=== PATIENT | female | born 1975 | race American Indian/Alaskan Native ===

== ENCOUNTER 2017-02-25 08:59 | Emergency (ER) | payer MEDICAID ==
--- NOTE | 2017-02-25 10:12 | Emergency Department Report ---
Chief Complaint: Back Pain/Injury Stated Complaint: FALL/BODY PAIN Time Seen by Provider: 02/25/17 10:07 - HPI History of Present Illness: PT states she fell down the steps on Saturday. PT states she was at her daughter's house. PT states she slid down on her backside. PT denies loc or incontinence. - ROS Review of Systems: + back pain + irregular cycle - missed cycle in january, passed clots February 09 - unsure if she is - Exam Physical Exam: PT looks well, non toxic steady gait with cane l-spine ttp t spine has paraspinal tenderness MSE screening note: Focused history and physical exam performed. Due to findings the following was ordered: labs, xr ED Disposition for MSE Condition: Stable
--- NOTE | 2017-02-25 10:55 | XRay Report ---
Lumbar spine: Trauma, pain. There is mild anterior compression of T11 with intact bony contours. Minimal retrolisthesis of L1 on L2 is noted. The interspace at L5-S1 is moderately narrowed with anterior and posterior spondylosis. No prior study for comparison. Impressions: L1 retrolisthesis; degenerative bone and disc changes at L5-S1. No fracture and no acute finding suspected.
[2017-02-25] MEDS ORDERED: MOTRIN PO ONE (11:23)
--- NOTE | 2017-02-25 12:37 | Cat Scan Report ---
CT HEAD WITHOUT CONTRAST INDICATION: Headache. Status post fall. COMPARISON: None similar. FINDINGS: Noncontrast head CT demonstrates normal ventricles and sulci without acute or recent infarct, hemorrhage, mass effect or midline shift. No abnormal extra-axial fluid collections. Slight periventricular hypodensities. Posterior fossa structures and basilar cisterns appear within normal limits. Symmetric eye globes. Clear aerated paranasal sinuses and mastoid air cells. Somewhat small frontal sinuses. Slight leftward nasal septal bowing. Atherosclerotic vascular calcifications. Intact calvarium. Normal overlying scalp soft tissues. Few radiopaque dental material incidentally noted. CONCLUSION: No acute intracranial CT abnormality, as described. Thank you for the opportunity to participate in this patient's care.
[2017-02-25 13:00] VITALS: BP 167/89
--- NOTE | 2017-02-25 22:43 | Emergency Department Report ---
Entered by BHARATH LAM, acting as scribe for CARIE MOTA NP. ED Headache HPI - General Chief Complaint: Headache Stated Complaint: FALL/BODY PAIN Time Seen by Provider: 02/25/17 10:07 Source: patient Exam Limitations: no limitations - History of Present Illness Initial Comments: This is a 42 y/o female nontoxic, well nourished in appearance, no acute signs of distress and PMHx of seizures with last episode 5 years ago, and sciatica, presents with back pain and constant, throbbing, 6/10 diffuse TRONCOSO secondary to a fall down stairs that occurred 2 days ago. Patient stated was walking up the stairs when she tripped and fell down 3 flit of stairs backwards. Patient stated she hit her head while falling down the stairs and stated she was not sure if she loss consciousness. Pt denies aggravating or alleviating factors, n /v, fever, chills, SOB, chest pain, visual changes, dizziness, numbness, blurry vision or bladder or bowel stability. Patient states allergies to Zofran. Timing/Duration: constant, other (2 days ago) Quality: moderate (6/10) Head Injury Location: other (diffuse) Recent Head Trauma: other (unknown) Associated Symptoms: denies symptoms. denies: confusion, fatigue, facial pain, fever/chills, flushing, loss of consciousness, nausea/vomiting, nasal congestion , nasal drainage, numbness in legs/feet, rash, seizures, sinus infection, stiff neck, vision changes, weakness Allergies/Adverse Reactions: Allergies Sulfa (Sulfonamide Antibiotics) Adverse Reaction (Verified 02/25/17 10:13) Hives Home Medications: Ambulatory Orders Cyclobenzaprine [Flexeril] 10 mg PO TID PRN #15 tablet 02/25/17 Ibuprofen [Motrin 600 MG tab] 600 mg PO Q8H PRN #15 tablet 02/25/17 ED Review of Systems Comment: All other systems reviewed and negative Constitutional: denies: chills, fever Eyes: denies: vision change ENT: denies: ear pain, throat pain Respiratory: denies: cough, shortness of breath Cardiovascular: denies: chest pain Endocrine: no symptoms reported Gastrointestinal: denies: abdominal pain, nausea, vomiting Genitourinary: denies: urgency, dysuria, discharge Musculoskeletal: denies: back pain, joint swelling, arthralgia Skin: denies: rash, lesions Neurological: headache. denies: numbness, other (tingling) Psychiatric: denies: anxiety, depression Hematological/Lymphatic: denies: easy bleeding, easy bruising Other: no bladder or bowel stability ED Past Medical Hx - Past Medical History Additional medical history: sciatica - Surgical History Past Surgical History?: Yes Additional Surgical History: tubal - Social History Smoking Status: Never Smoker Substance Use Type: Marijuana - Medications Home Medications: Home Medications Medication Instructions Recorded Confirmed Last Taken Type Cyclobenzaprine [Flexeril] 10 mg PO TID PRN #15 tablet 02/25/17 Unknown Rx Ibuprofen [Motrin 600 MG tab] 600 mg PO Q8H PRN #15 tablet 02/25/17 Unknown Rx ED Physical Exam - General Limitations: No Limitations General appearance: alert, in no apparent distress - Head Head exam: Present: atraumatic, normocephalic - Eye Eye exam: Present: normal appearance, PERRL, EOMI Pupils: Present: normal accommodation - ENT ENT exam: Present: normal exam, normal orophraynx, mucous membranes moist, TM's normal bilaterally, normal external ear exam - Neck Neck exam: Present: normal inspection, full ROM. Absent: tenderness, meningismus, lymphadenopathy, thyromegaly - Respiratory Respiratory exam: Present: normal lung sounds bilaterally. Absent: respiratory distress, wheezes, rales, rhonchi, stridor, chest wall tenderness, accessory muscle use, decreased breath sounds, prolonged expiratory - Cardiovascular Cardiovascular Exam: Present: regular rate, normal rhythm, normal heart sounds. Absent: bradycardia, tachycardia, irregular rhythm, systolic murmur, diastolic murmur, rubs, gallop - GI/Abdominal GI/Abdominal exam: Present: soft, distended, normal bowel sounds. Absent: tenderness, guarding, rebound, rigid, mass, bruit - Extremities Exam Extremities exam: Present: normal inspection, full ROM, normal capillary refill. Absent: tenderness, pedal edema, joint swelling, calf tenderness - Back Exam Back exam: Present: normal inspection, full ROM, tenderness, paraspinal tenderness (thoracic region but denies thoracic spinal tenderness), vertebral tenderness (lumbar spinal tenderness). Absent: CVA tenderness (R), CVA tenderness (L), muscle spasm, rash noted - Expanded Back Exam Expanded Back exam: Absent: saddle anesthesia Back exam: Negative Straight Leg Raising: Left, Right - Neurological Exam Neurological exam: Present: alert, oriented X3, CN II-XII intact, normal gait, reflexes normal. Absent: abnormal gait, motor sensory deficit - Expanded Neurological Exam Expanded Patient oriented to: Present: person, place, time Speech: Present: fluid speech (normal speech) Cranial nerves: EOM's Intact: Normal, Gag Reflex: Normal, Tongue Deviation: Normal, Nystagmus: Normal, Facial Sensation: Normal, Facial Palsy with Forehead Movement: Normal, Facial Palsy without Forehead Movement: Normal Cerebellar function: Finger to Nose: Normal, Heel to Driver: Normal, Romberg: Normal Upper motor neuron: Amarjit Neglect: Normal, Pronator Drift: Normal, Babinski Sign : Normal, Sensory Extinction: Normal Sensory exam: Upper Extremity Light Touch: Normal, Upper Extremity Pin Prick: Normal, Upper Extremity Temperature: Normal, UE 2 Point Discrimination: Normal, Lower Extremity Light Touch: Normal, Lower Extremity Pin Prick: Normal, Lower Extremity Temperature: Normal, LE 2 Point Discrimination: Normal Motor strength exam: RUE: 5, LUE: 5, RLE: 5, LLE: 5 DTR: bicep (R): 2+, bicep (L): 2+, tricep (R): 2+, tricep (L): 2+, knee (R): 2+ , knee (L): 2+, ankle (R): 2+, ankle (L): 2+ Best Eye Response ([place]): (4) open spontaneously Best Motor Response ([place]): (6) obeys commands Best Verbal Response ([place]): (5) oriented [place] Total: 15 - Psychiatric Psychiatric exam: Present: normal affect, normal mood. Absent: depressed, agitated, anxious - Skin Skin exam: Present: warm, dry, intact, normal color. Absent: rash - Other Other exam information: Negative bladder or bowel instability. ED Course Vital Signs 02/25/17 10:08 Temperature 98.2 F Pulse Rate 52 L Respiratory 18 Rate Blood Pressure 154/82 O2 Sat by Pulse 100 Oximetry - Reevaluation(s) Reevaluation #1: 02/25/17 12:12 Patient stated her headache has subsided with a 1 out of 10. Denies dizziness. Denies blurry vision. Patient is resting comfortably with no signs of distress. ED Medical Decision Making - Medical Decision Making Ed course: This is a 42-year-old female that presents with headache and lumbar strain with degenerative disc disease 1- after my physical exam, patient received ibuprofen 600 mg by mouth in ED and stated her headache has subsided. 2- x-ray of lumbar spine has been obtained. Dictated by Dr. Brown. L1 retrolisthesis, degenerative bone and disc diseases to L5-S1. No fracture and no acute findings suspected.. 3- x-ray/ct has been notified to the patient with no further questions noted by the patient. 4- due to patient stating headache status post fall a CT scan of head/brain without contrast has been obtained with normal findings. 5- patient received ibuprofen 600 mg by mouth at time of discharge and was instructed to take as needed for pain. Patient also received Flexeril and was instructed not to operate heavy machine while taking Flexeril. 6- at time time of discharge, the patient does not seem toxic or ill in appearance. No acute signs of distress noted. Patient agrees to discharge treatment plan of care. No further questions noted by the patient. 7- that was instructed to follow-up with your primary care doctor in 3-5 days or if symptoms worsen such as bladder or bowel stability, chest pain, short of breath, numbness or tingling sensation in extremities, headache, dizziness, visual changes, nausea vomiting, or abdominal pain, upper back to emergency room as was possible. ED Disposition Clinical Impression: Lumbar strain, Headache Disposition: [id number] TO HOME OR SELFCARE Is pt being admited?: No Does the pt Need Aspirin: No Condition: Stable Instructions: Ibuprofen (By mouth), Low Back Strain (ED), Acute Headache (ED) Additional Instructions: Follow-up with Dr. Isaac for your spine Ct findings as discussed. follow-up with your primary care doctor in 3-5 days or if symptoms worsen such as bladder or bowel stability, chest pain, short of breath, numbness or tingling sensation in extremities, headache, dizziness, visual changes, nausea vomiting, or abdominal pain, upper back to emergency room as was possible. Take ibuprofen and Flexeril as prescribed. Do not operate heavy machinery while taking Flexeril due to sedation Prescriptions: Cyclobenzaprine [Flexeril] 10 mg PO TID PRN #15 tablet PRN Reason: Muscle Spasm Ibuprofen [Motrin 600 MG tab] 600 mg PO Q8H PRN #15 tablet PRN Reason: Pain Referrals: PRIMARY CARE, [Primary Care Provider] - 3-5 Days [facility] [Outside] - 3-5 Days [facility] [Outside] - 3-5 Days ANEUDY HURST JR, MD [Staff Physician] - 3-5 Days AUGUSTINE ISAAC MD [Staff Physician] - 3-5 Days Forms: Work/School Release Form(ED) This documentation as recorded by the GENARO johns RYAN,accurately reflects the service I personally performed and the decisions made by ,CARIE MOTA, RELATIONSHIP COUNSELOR.
== END 2017-02-25 12:59 | disposition home or self-care (01) ==
LOC: EDSEX → ED 08:59
DX: S39.012A Strain of muscle, fascia and tendon of lower back, initial encounter (principal); R51 Headache; F12.10 Cannabis abuse, uncomplicated; Z88.2 Allergy status to sulfonamides; W10.9XXA Fall (on) (from) unspecified stairs and steps, initial encounter; Y93.01 Activity, walking, marching and hiking; Y99.9 Unspecified external cause status; Y92.89 Other specified places as the place of occurrence of the external cause
CPT/HCPCS: 36415; 70450; 72100; 84703